=== PATIENT | female | born 1955 | race Caucasian/White ===

== ENCOUNTER 2018-10-25 08:06 | Outpatient (CLI) | payer BC ==
--- NOTE | 2018-10-25 08:51 | BD ---
EXAM: DEXA bone density examination HISTORY: 63-year-old postmenopausal female for screening COMPARISON: None FINDINGS: L1--bone mineral density 0.953 g/sq cm; T score -0.3 L2--bone mineral density 1.117 g/sq cm; T score 0.8 L3--bone mineral density 1.243 g/sq cm; T score 1.4 L4--bone mineral density 1.194 g/sq cm; T score 1.2 Total L1-L4--bone mineral density 1.126 g/sq cm; T score 0.7 Left femoral neck--bone mineral density0.801; T score -0.4 Total proximal left femur--bone mineral density 0.952; T score 0.1 IMPRESSION: Normal bone mineral density.
--- NOTE | 2018-10-25 09:03 | MMO ---
Bilateral MAMMO Bilat Screen [facility]. CLINICAL HISTORY: Patient is 63 years old and is seen for screening. The patient has no family history of breast cancer. The patient has no personal history of cancer. VIEWS: The views performed were: bilateral craniocaudal with tomosynthesis and bilateral mediolateral oblique with tomosynthesis. FILMS COMPARED: The present examination has been compared to prior imaging studies performed at [facility] on 10/07/2010, 10/11/2011, 02/10/2016 and 03/22/2017. MAMMOGRAM FINDINGS: There are scattered fibroglandular densities. There are stable benign appearing calcifications seen in both breasts. There are no suspicious masses, suspicious calcifications, or new areas of architectural distortion. IMPRESSION: THERE IS NO MAMMOGRAPHIC EVIDENCE OF MALIGNANCY. A ROUTINE FOLLOW-UP MAMMOGRAM IN 1 YEAR IS RECOMMENDED. THE RESULTS OF THIS EXAM WERE SENT TO THE PATIENT. ACR BI-RADS Category 2 - Benign finding MAMMOGRAPHY NOTE: 1. A negative mammogram report should not delay a biopsy if a dominant of clinically suspicious mass is present. 2. Approximately 10% to 15% of breast cancers are not detected by mammography. 3. Adenosis and dense breasts may obscure an underlying neoplasm.
== END 2018-10-25 08:07 | disposition home or self-care (01) ==
LOC: BICMAMMO 08:06
PROVIDERS: ATTEND Specialist
DX: Z12.31 Encounter for screening mammogram for malignant neoplasm of breast (principal); M81.0 Age-related osteoporosis without current pathological fracture
CPT/HCPCS: 77063; 77067; 77080

== ENCOUNTER 2020-02-18 11:03 | Outpatient (CLI) | payer BC ==
--- NOTE | 2020-02-18 12:20 | RAD ---
RIGHT SHOULDER 3 VIEWS: Date: 02/18/2020 HISTORY: Right shoulder pain. Decreased range of motion. FINDINGS: Severe osteoarthrosis changes with joint space narrowing and sclerosis and some subchondral cystic ch maame of the glenohumeral joint including hypertrophic osteophytosis. No acute fracture or dislocation . IMPRESSION: Osteoarthrosis without acute fracture or dislocation. POS: RRE
== END 2020-02-18 11:04 | disposition home or self-care (01) ==
LOC: BICRAD 11:03
PROVIDERS: ATTEND Specialist
DX: M25.511 Pain in right shoulder (principal); M19.011 Primary osteoarthritis, right shoulder

== ENCOUNTER 2020-02-28 14:43 | Outpatient (CLI) | payer BC ==
--- NOTE | 2020-02-28 15:20 | BD ---
EXAM: Bone densitometry using DEXA HISTORY: 64 yo female. Screening for postmenopausal osteoporosis FINDINGS: L1--bone mineral density 1.037 g/sq cm; T score 0.4 ; Z score 2.0 L2--bone mineral density 1.168 g/sq cm; T score 1.3 ; Z score 3.0 L3--bone mineral density 1.163 g/sq cm; T score 0.7 ; Z score 2.5 L4--bone mineral density 1.154 g/sq cm; T score 0.8 ; Z score 2.7 Total L1-L4--bone mineral density 1.130 g/sq cm; T score 0.8 ; Z score 2.5 Left femoral neck--bone mineral density0.776; T score -0.7 ; Z score 0.8 Total proximal left femur--bone mineral density 0.970; T score 0.2 ; Z score 1.4 There has been an interval improvement of 0.4% in the BMD of the lumbar spine and a improvement of 1.9% in the BMD of the proximal femur since the previous study of 10/25/2018. IMPRESSION: Normal BMD
--- NOTE | 2020-02-28 15:55 | MMO ---
Bilateral MAMMO Bilat Screen [facility]. CLINICAL HISTORY: Patient is 64 years old and is seen for screening. The patient has no family history of breast cancer. The patient has no personal history of cancer. VIEWS: The views performed were: bilateral craniocaudal with tomosynthesis and bilateral mediolateral oblique with tomosynthesis. FILMS COMPARED: The present examination has been compared to prior imaging studies performed at [facility] on 10/11/2011, 02/10/2016, 03/22/2017 and 10/25/2018. This study has been interpreted with the assistance of computer-aided detection. MAMMOGRAM FINDINGS: There are scattered fibroglandular densities. Benign calcifications are noted bilaterally. There are no suspicious masses, suspicious calcifications, or new areas of architectural distortion. IMPRESSION: THERE IS NO MAMMOGRAPHIC EVIDENCE OF MALIGNANCY. A ROUTINE FOLLOW-UP MAMMOGRAM IN 1 YEAR IS RECOMMENDED. THE RESULTS OF THIS EXAM WERE SENT TO THE PATIENT. ACR BI-RADS Category 2 - Benign finding MAMMOGRAPHY NOTE: 1. A negative mammogram report should not delay a biopsy if a dominant of clinically suspicious mass is present. 2. Approximately 10% to 15% of breast cancers are not detected by mammography. 3. Adenosis and dense breasts may obscure an underlying neoplasm. Reported by: HAIM REECE MD Electonically Signed: [id number]
== END 2020-02-28 14:44 | disposition home or self-care (01) ==
LOC: BICMAMMO 14:43
PROVIDERS: ATTEND Specialist
DX: Z12.31 Encounter for screening mammogram for malignant neoplasm of breast (principal); M81.0 Age-related osteoporosis without current pathological fracture
CPT/HCPCS: 77063; 77067; 77080

== ENCOUNTER 2021-05-25 08:44 | Outpatient (CLI) | payer BC | END 2021-05-25 08:45 | disposition home or self-care (01) | LOC: BICMAMMO 08:44 | PROVIDERS: ATTEND Specialist | DX: Z12.31 Encounter for screening mammogram for malignant neoplasm of breast (principal) | CPT/HCPCS: 77063; 77067 ==

== ENCOUNTER 2021-09-28 09:44 | Outpatient (CLI) | payer BC ==
[2021-09-28 21:42] LABS: SARS-CoV-2 PCR by NAA Not Detected (NotDetected)
== END 2021-09-28 09:45 | disposition home or self-care (01) ==
LOC: LABBT 09:44
DX: Z20.822 Contact with and (suspected) exposure to COVID-19 (principal)
CPT/HCPCS: U0003; U0005

== ENCOUNTER 2021-10-01 09:38 | Outpatient (CLI) | payer BC | END 2021-10-01 09:39 | disposition home or self-care (01) | LOC: RAD 09:38 | PROVIDERS: ATTEND Specialist | DX: R13.10 Dysphagia, unspecified (principal) | CPT/HCPCS: 74220 ==

== ENCOUNTER 2022-01-18 13:51 | Outpatient (CLI) | payer BC | END 2022-01-18 13:52 | disposition home or self-care (01) | LOC: LABBT 13:51 | PROVIDERS: ATTEND Internal Medicine Gastroenterology | DX: R13.19 Other dysphagia (principal); Z20.822 Contact with and (suspected) exposure to COVID-19 | CPT/HCPCS: 87811 ==

== ENCOUNTER → 2022-01-21 | Day surgery (SDC) | payer BC | LOC: ENDO/OP 14:39 | PROVIDERS: ATTEND Internal Medicine Gastroenterology | DX: R13.19 Other dysphagia (principal); K21.9 Gastro-esophageal reflux disease without esophagitis; I10 Essential (primary) hypertension; Z79.890 Hormone replacement therapy; Z79.899 Other long term (current) drug therapy | CPT/HCPCS: 91010 ==

== ENCOUNTER 2023-04-10 08:54 | Outpatient (CLI) | payer MEDICARE | END 2023-04-10 08:55 | disposition home or self-care (01) | LOC: BICMAMMO 08:54 | PROVIDERS: ATTEND Specialist | DX: Z12.31 Encounter for screening mammogram for malignant neoplasm of breast (principal); M85.851 Other specified disorders of bone density and structure, right thigh | CPT/HCPCS: 77063; 77067; 77080 ==